=== PATIENT | female | born 1985 | race Caucasian/White ===

== ENCOUNTER 2020-06-19 08:00 | Outpatient (CLI) | payer OTHER ==
[2020-06-19 12:17] LABS: BASOPHILS % (AUTO) 0.5 %; EOSINOPHILS # (AUTO) 0.1 10^3/uL (0.0-0.7); EOSINOPHILS % (AUTO) 1.4 %; HGB - HEMOGLOBIN 13.9 g/dL (12.0-16.0); LYMPHOCYTES % (AUTO) 34.8 %; MEAN CORPUSCULAR HEMOGLOBIN 26.6 pg (27.0-31.0); MEAN CORPUSCULAR HGB CONC 30.9 g/dL (32.0-36.0); MEAN PLATELET VOLUME 11.2 fL (7.9-10.8); MONOCYTES # (AUTO) 0.5 10^3/uL (0.0-1.0); MONOCYTES % (AUTO) 8.7 %; NEUTROPHILS # (AUTO) 3.1 10^3/uL (1.5-6.6); NEUTROPHILS % (AUTO) 54.3 %; PLT - PLATELET COUNT 245 10^3/uL (130-450); RED BLOOD COUNT 5.23 10^6/uL (4.20-5.40); RED CELL DISTRIBUTION WIDTH 13.2 % (12.0-15.0); WHITE BLOOD COUNT 5.8 x10^3/uL (4.8-10.8)
[2020-06-19 12:23] LABS: ALBUMIN 4.1 g/dL (3.2-5.5); ALBUMIN/GLOBULIN RATIO 1.2 (1.0-2.2); ALKALINE PHOSPHATASE 42 IU/L (42-121); ALT ALANINE AMINOTRANSFERASE 15 IU/L (10-60); AST ASPARTATE AMINOTRANSFERASE 17 IU/L (10-42); BILIRUBIN,TOTAL 0.6 mg/dL (0.2-1.0); BUN - BLOOD UREA NITROGEN 19 mg/dL (6-20); CALCIUM 9.4 mg/dL (8.5-10.3); CARBON DIOXIDE - CO2 27 mmol/L (21-32); CHLORIDE 104 mmol/L (101-111); CHOL/HDL RATIO 3.6 (<4.4); CHOLESTEROL 190 mg/dL; CREATININE 0.6 mg/dL (0.4-1.0); GLUCOSE 88 mg/dL (70-100); HDL CHOLESTEROL 53 mg/dL; LDL CHOLESTEROL,CALCULATED 119 mg/dL; LDL/HDL RATIO 2.2 (<4.4); SODIUM 139 mmol/L (135-145); TOTAL PROTEIN 7.5 g/dL (6.7-8.2); VLDL CHOLESTEROL 18 mg/dL
== END 2020-06-19 23:59 | disposition home or self-care (01) ==
LOC: LAB.WCP 08:00
PROVIDERS: ATTEND Nurse Practitioner Family
DX: Z00.00 Encounter for general adult medical examination without abnormal findings (principal)
CPT/HCPCS: 36415; 80053; 80061; 83721; 84443; 85025

== ENCOUNTER 2020-09-17 03:23 | Outpatient (CLI) | payer OTHER | END 2020-09-17 03:24 | disposition EMS.NT | LOC: EMS 03:23 | DX: K59.00 Constipation, unspecified (principal); R10.30 Lower abdominal pain, unspecified ==

== ENCOUNTER 2020-09-17 03:42 | Emergency (ER) | payer OTHER ==
--- NOTE | 2020-09-17 03:45 | ED Physician Documentation ---
PD HPI ABD PAIN - Stated complaint Stated Complaint: ADB PX - History obtained from History obtained from: Patient - History of Present Illness Timing - onset: How many hours ago (several hours of marked cramping abd pains mid/lower abd.) Timing - details: Gradual onset (He states she had left foot and ankle reconstructive surgery 4 days ago. She had not had a bowel movement for a day or 2 prior to that. She had had just small firm stools in the last day. She is having increased cramping and bloating after taking mag citrate. Had had pain meds post op.) Quality: Cramping, Aching, Fullness/distended Location: All over / everywhere, Periumbilical Improved by: No: Position Worsened by: Moving. No: Breathing Associated symptoms: Nausea, Constipation. No: Fever, Vomiting, Diarrhea, Melena Similar symptoms before: Has not had sx before (history of constipation problems, not had cramps like this in the past. No prior abd surgery.) Recently seen: Surgery (4 days ago for left foot and ankle.) Review of Systems Constitutional: denies: Fever, Chills Nose: denies: Rhinorrhea / runny nose, Congestion Throat: denies: Sore throat Cardiac: denies: Chest pain / pressure Respiratory: denies: Dyspnea, Cough GI: reports: Abdominal Pain (cramping), Nausea, Constipation. denies: Vomiting, Diarrhea, Bloody / black stool : denies: Dysuria, Unable to Void Skin: denies: Rash Neurologic: denies: Generalized weakness, Near syncope PD PAST MEDICAL HISTORY - Past Medical History Cardiovascular: None Respiratory: None GI: None, Chronic constipation - Present Medications Home Medications: Ambulatory Orders Medication Instructions Recorded Confirmed Citalopram Hydrobromide 40 mg PO 09/17/20 [Citalopram HBr] Tofacitinib Citrate [Xeljanz Xr] 11 mg PO 09/17/20 09/17/20 Topiramate [Topamax] 25 mg PO 09/17/20 Zolmitriptan [Zomig] 09/17/20 - Allergies Allergies/Adverse Reactions: Allergies Allergy/AdvReac Type Severity Reaction Status Date / Time No Known Drug Allergies Allergy Verified 09/17/20 05:29 PD ED PE NORMAL - Vitals Vital signs reviewed: Yes - General General: Alert and oriented X 3, Well developed/nourished, Other (appears in considerable pain and rubbing her mid to lower abd repetitively. ) - Cardiac Cardiac: RRR, No murmur - Respiratory Respiratory: Clear bilaterally - Abdomen Abdomen: Soft, Non distended, Other (increased bowel sounds mid abd. Tender mid abd without guarding nor percussion tender. ) - Female Female : Deferred - Rectal Rectal: Deferred - Derm Derm: Normal color, Warm and dry - Extremities Extremities: Other (dressing and splint on left ankle/foot. No calf tenderness nor swelling above the splint. ) - Neuro Neuro: Alert and oriented X 3, No motor deficit, No sensory deficit, Normal speech Results - Vitals Vitals: Vital Signs - 24 hr 09/17/20 09/17/20 09/17/20 03:52 04:17 06:00 Temperature 37.3 C 36.5 C Heart Rate 108 H 94 85 Respiratory 22 27 H 21 Rate Blood Pressure 139/88 H 147/88 H 136/89 H O2 Saturation 99 100 98 Oxygen O2 Source Room air - Labs Labs: Laboratory Tests 09/17/20 09/17/20 09/17/20 06:07 06:07 06:07 WBC 7.3 RBC 4.52 Hgb 12.0 Hct 38.9 MCV 86.1 MCH 26.5 L MCHC 30.8 L RDW 12.9 Plt Count 260 MPV 10.6 Neut # (Auto) 5.9 Lymph # (Auto) 1.1 L [place] # (Auto) 0.3 Eos # (Auto) 0.0 Baso # (Auto) 0.0 Absolute Nucleated RBC 0.00 Nucleated RBC % 0.0 Sodium 137 Potassium 3.7 Chloride 105 Carbon Dioxide 22 Anion Gap 10.0 BUN 13 Creatinine 0.6 Estimated GFR (MDRD) 114 Glucose 111 H Calcium 8.3 L Serum HCG, Qual NEGATIVE PD MEDICAL DECISION MAKING - ED course Complexity details: reviewed results (CT scan is showing air-fluid levels which appears to be above an area of stool in the descending and sigmoid colon. There is some thickening of the bowel wall consistent with some potential inflammation. Awaiting radiology report.), re-evaluated patient (Persistence of abdominal cramping and pain, I opted for CT scan and labs to look for other possible causes.), considered differential (He is having a feeling of bloating. Increased abdominal sounds. She does not have a surgically acute abdomen by exam but is having considerable pain. Consider constipation versus obstipation or other process.), d/w patient Departure - Departure Clinical Impression: Status post surgical manipulation of ankle joint, Abdominal cramping, bilateral lower quadrant Constipation Qualifiers: Constipation type: drug induced constipation Qualified Code(s): K59.03 - Drug induced constipation Condition: Stable Record reviewed to determine appropriate education?: Yes
[2020-09-17] MEDS ORDERED: KETOROLAC 30 MG/ML VIAL IVP STA (04:00)
[2020-09-17] MEDS ORDERED: KETAMINE 500 MG/10 ML VIAL IVP STA (04:01)
[2020-09-17] MEDS ORDERED: SODIUM CHLORIDE 0.9% 1,000 ML IV STA (04:02)
[2020-09-17] MEDS ORDERED: MINERAL OIL ENEMA 133 ML BOTTLE RC STA (04:02)
[2020-09-17] MEDS ORDERED: polyethylene glycoL 3350 17 GM PACKET PO STA (04:02)
[2020-09-17] MEDS ORDERED: DICYCLOMINE 10 MG CAPSULE PO STA (05:07)
[2020-09-17] MEDS ORDERED: fentaNYL 100 MCG/2 ML VIAL IVP STA ×2 (05:10→06:07)
[2020-09-17 06:13] LABS: BASOPHILS % (AUTO) 0.1 %; LYMPHOCYTES # (AUTO) 1.1 10^3/uL (1.5-3.5); LYMPHOCYTES % (AUTO) 15.3 %; MEAN CORPUSCULAR HEMOGLOBIN 26.5 pg (27.0-31.0); MEAN CORPUSCULAR HGB CONC 30.8 g/dL (32.0-36.0); MEAN CORPUSCULAR VOLUME 86.1 fL (81.0-99.0); MEAN PLATELET VOLUME 10.6 fL (7.9-10.8); MONOCYTES # (AUTO) 0.3 10^3/uL (0.0-1.0); MONOCYTES % (AUTO) 3.6 %; NEUTROPHILS # (AUTO) 5.9 10^3/uL (1.5-6.6); NEUTROPHILS % (AUTO) 80.9 %; PLT - PLATELET COUNT 260 10^3/uL (130-450); RED BLOOD COUNT 4.52 10^6/uL (4.20-5.40); RED CELL DISTRIBUTION WIDTH 12.9 % (12.0-15.0); WHITE BLOOD COUNT 7.3 x10^3/uL (4.8-10.8)
[2020-09-17] MEDS ORDERED: IOVERSOL 320 100 ML VIAL IVP ONE ×2 (06:15→06:53)
[2020-09-17 06:21] LABS: CALCIUM 8.3 mg/dL (8.5-10.3); CREATININE 0.6 mg/dL (0.4-1.0)
[2020-09-17 06:43] LABS: HCG,QUALITATIVE BLOOD NEGATIVE
[2020-09-17] MEDS ORDERED: SOAP SUDS ENEMA 1 EACH RC ONE (07:03)
[2020-09-17] MEDS ORDERED: HYDROmorphone 1 MG/ML CARPUJECT IVP STA (08:05)
--- NOTE | 2020-09-17 08:44 | CT Report ---
PROCEDURE: Abdomen/Pelvis W INDICATIONS: Mid and lower abdominal cramping pain. History of recent foot and ankle surgery. CONTRAST: IV CONTRAST: Optiray 320 ml: 100 PO CONTRAST: *NO PO CONTRAST TECHNIQUE: After the administration of intravenous contrast, 5 mm thick sections acquired from the diaphragms to the symphysis. 5 mm thick coronal and sagittal reformats were acquired. For radiation dose reducti on, the following was used: automated exposure control, adjustment of mA and/or kV according to zonai ent size. COMPARISON: None. FINDINGS: Image quality: Excellent. ABDOMEN: Lung bases: There is mild dependent atelectasis in the lung bases. Heart size is normal. There are bi lateral breast implants partially visualized. Solid organs: Evaluation of the liver demonstrates no focal hepatic lesions. Gallbladder appears wit hin normal limits without calcified gallstones. Biliary system is non dilated. The spleen is normal in size. Pancreas enhances normally without peripancreatic fat stranding or fluid collections. No ad renal nodules. Kidneys demonstrate no hydronephrosis. Peritoneum and bowel: There is moderate stool distention within the distal descending and sigmoid co eden compatible with constipation or obstipation. More proximally, there is moderate fluid distention throughout the colon with air-fluid levels within the descending, transverse, and ascending colon. Th ere is also mild fluid distention within the distal small bowel with scattered air-fluid levels. The findings are suggestive of an ileus. No definite focal transition point to suggest a bowel obstructio n. No free fluid or air. Nodes and vessels: No retroperitoneal or mesenteric adenopathy by size criteria. Aorta and inferior vena cava are normal in size. Miscellaneous: No ventral hernias. PELVIS: Genitourinary: Bladder wall thickness is normal. Miscellaneous: No inguinal hernias or adenopathy. Bones: No suspicious bony lesions. No vertebral body compression fractures. IMPRESSION: 1. Moderate stool distention of the sigmoid colon with fluid distention demonstrated more proximally throughout the colon as well as in the distal small bowel. Findings likely represent an ileus without definite evidence of focal bowel obstruction. Reviewed by: Dennis Machuca MD on 09/17/2020 8:42 AM PST Approved by: Dennis Machuca MD on 09/17/2020 8:42 AM PST Station ID: [id number]
[2020-09-17 09:28] VITALS: BP 132/80
--- NOTE | 2020-09-17 09:33 | ED Physician Documentation ---
ED Addendum - Addendum Addendum: 09/17/20 09:32 35-year-old female s/p manipulation of her ankle surgically has developed narcotic induced constipation we required 2 enemas in the emergency department to relieve her she feels much improved after several bowel movements and wants to go home. She is instructed to take MiraLAX on a regular basis for 1 to 2 weeks to retrain her colon.
== END 2020-09-17 09:38 | disposition home or self-care (01) ==
LOC: ED 03:42
DX: K59.00 Constipation, unspecified (principal); R10.30 Lower abdominal pain, unspecified; Z98.890 Other specified postprocedural states
CPT/HCPCS: 36415; 74177; 80048; 84703; 85025; 96374; 96375; 96376; 99284; 99285; A9270; J1170; Q9967

== ENCOUNTER 2020-09-17 16:11 | Emergency (ER) | payer OTHER ==
--- NOTE | 2020-09-17 16:31 | ED Physician Documentation ---
History of Present Illness - Stated complaint Stated Complaint: CAN'T MOVE/FEVER - Chief complaint Chief Complaint: Fever - History obtained from History obtained from: Patient - History of Present Illness Timing: Today Pain level max: 7 Pain level now: 6 - Additonal information Additional information: Female who presents to the emergency department stating that she had left foot surgery 4 days ago. Seen here this morning for constipation. [place] better after multiple enemas. Today she went home, fell asleep and then woke up with a fever, body aches and sore throat. Took Tylenol without relief. Nothing makes it better or worse. No cough. Negative Covid screen last week. Review of Systems Constitutional: reports: Fever (Tmax 37.9). denies: Chills Nose: denies: Rhinorrhea / runny nose, Congestion Throat: reports: Sore throat Cardiac: denies: Chest pain / pressure Respiratory: denies: Cough GI: denies: Vomiting, Diarrhea Skin: denies: Rash Musculoskeletal: denies: Neck pain, Back pain Neurologic: denies: Headache PD PAST MEDICAL HISTORY - Past Medical History Cardiovascular: None Respiratory: None GI: None, Chronic constipation - Past Surgical History Past Surgical History: Yes Ortho: Other - Present Medications Home Medications: Ambulatory Orders Medication Instructions Recorded Confirmed Citalopram Hydrobromide 40 mg PO DAILY 09/17/20 09/17/20 [Citalopram HBr] Enoxaparin Sodium [Lovenox] 40 mg SQ DAILY 09/17/20 09/17/20 Tofacitinib Citrate [Xeljanz Xr] 11 mg PO DAILY 09/17/20 09/17/20 Topiramate [Topamax] 25 mg PO DAILY 09/17/20 09/17/20 Zolmitriptan [Zomig] 5 mg ORAL DAILY PRN 09/17/20 09/17/20 - Allergies Allergies/Adverse Reactions: Allergies Allergy/AdvReac Type Severity Reaction Status Date / Time No Known Drug Allergies Allergy Verified 09/17/20 16:14 - Social History Does the pt smoke?: No Smoking Status: Never smoker Does the pt drink ETOH?: Yes Does the pt have substance abuse?: No - Immunizations Immunizations are current?: Yes - POLST Patient has POLST: No PD ED PE NORMAL - Vitals Vital signs reviewed: Yes - General General: Alert and oriented X 3, No acute distress - HEENT HEENT: Moist mucous membranes - Neck Neck: Supple, no meningeal sign - Cardiac Cardiac: RRR - Respiratory Respiratory: No respiratory distress, Clear bilaterally - Derm Derm: Warm and dry - Extremities Extremities: No edema, No calf tenderness / cord, Other (L lower leg in splint) - Neuro Neuro: Alert and oriented X 3 Results - Vitals Vitals: Vital Signs - 24 hr 09/17/20 09/17/20 09/17/20 16:14 18:51 20:00 Temperature 37.9 C 37.9 C Heart Rate 132 H 110 H 107 H Respiratory 20 15 21 Rate Blood Pressure 111/67 129/73 134/71 H O2 Saturation 99 100 98 09/17/20 20:58 Temperature 37.9 C Heart Rate 101 H Respiratory 20 Rate Blood Pressure 134/73 H O2 Saturation 99 Oxygen O2 Source Room air - Labs Labs: Laboratory Tests 09/17/20 09/17/20 09/17/20 16:38 16:38 16:48 WBC 7.8 RBC 4.28 Hgb 11.4 L Hct 36.2 L MCV 84.6 MCH 26.6 L MCHC 31.5 L RDW 13.3 Plt Count 255 MPV 10.3 Neut # (Auto) 6.2 Lymph # (Auto) 1.1 L [place] # (Auto) 0.4 Eos # (Auto) 0.1 Baso # (Auto) 0.0 Absolute Nucleated RBC 0.00 Nucleated RBC % 0.0 Sodium 136 Potassium 3.8 Chloride 100 L Carbon Dioxide 23 Anion Gap 13.0 BUN 11 Creatinine 0.6 Estimated GFR (MDRD) 114 Glucose 125 H Calcium 8.6 Total Bilirubin 0.5 AST 31 ALT 48 Alkaline Phosphatase 50 Total Protein 6.4 L Albumin 3.2 Globulin 3.2 Albumin/Globulin Ratio 1.0 Urine Color Urine Clarity Urine pH Ur Specific [place] Urine Protein Urine Glucose (UA) Urine Ketones Urine Occult Blood Urine Nitrite Urine Bilirubin Urine Urobilinogen Ur Leukocyte Esterase Ur Microscopic Review Urine Culture Comments Urine HCG, Qual Nasal Adenovirus (PCR) Nasal B. parapertussis DNA (PCR) Nasal Coronavir 229E PCR Nasal Coronavir HKU1 PCR Nasal Coronavir NL63 PCR Nasal Coronavir OC43 PCR Nasal Enterovir/Rhinovir PCR Nasal Influenza B PCR Nasal Influenza A PCR Nasal Parainfluen 1 PCR Nasal Parainfluen 2 PCR Nasal Parainfluen 3 PCR Nasal Parainfluen 4 PCR Nasal RSV (PCR) Nasal B.pertussis DNA PCR Nasal C.pneumoniae (PCR) Jesse Human Metapneumo PCR Nasal M.pneumoniae (PCR) Nasal SARS-CoV-2 (PCR) Group A Strep Rapid Negative 09/17/20 09/17/20 16:48 18:40 WBC RBC Hgb Hct MCV MCH MCHC RDW Plt Count MPV Neut # (Auto) Lymph # (Auto) [place] # (Auto) Eos # (Auto) Baso # (Auto) Absolute Nucleated RBC Nucleated RBC % Sodium Potassium Chloride Carbon Dioxide Anion Gap BUN Creatinine Estimated GFR (MDRD) Glucose Calcium Total Bilirubin AST ALT Alkaline Phosphatase Total Protein Albumin Globulin Albumin/Globulin Ratio Urine Color YELLOW Urine Clarity CLEAR Urine pH 7.5 Ur Specific [place] 1.015 Urine Protein NEGATIVE Urine Glucose (UA) NEGATIVE Urine Ketones 15 H Urine Occult Blood NEGATIVE Urine Nitrite NEGATIVE Urine Bilirubin NEGATIVE Urine Urobilinogen 0.2 (NORMAL) Ur Leukocyte Esterase NEGATIVE Ur Microscopic Review NOT INDICATED Urine Culture Comments NOT INDICATED Urine HCG, Qual NEGATIVE Nasal Adenovirus (PCR) NOT DETECTED Nasal B. parapertussis DNA (PCR) NOT DETECTED Nasal Coronavir 229E PCR NOT DETECTED Nasal Coronavir HKU1 PCR NOT DETECTED Nasal Coronavir NL63 PCR NOT DETECTED Nasal Coronavir OC43 PCR NOT DETECTED Nasal Enterovir/Rhinovir PCR NOT DETECTED Nasal Influenza B PCR NOT DETECTED Nasal Influenza A PCR NOT DETECTED Nasal Parainfluen 1 PCR NOT DETECTED Nasal Parainfluen 2 PCR NOT DETECTED Nasal Parainfluen 3 PCR NOT DETECTED Nasal Parainfluen 4 PCR NOT DETECTED Nasal RSV (PCR) NOT DETECTED Nasal B.pertussis DNA PCR NOT DETECTED Nasal C.pneumoniae (PCR) NOT DETECTED Jesse Human Metapneumo PCR NOT DETECTED Nasal M.pneumoniae (PCR) NOT DETECTED Nasal SARS-CoV-2 (PCR) NOT DETECTED Group A Strep Rapid - Rads (name of study) cxr Radiology: Prelim report reviewed, EMP read contemporaneously, See rad report (no acute disease) PD MEDICAL DECISION MAKING - ED course Complexity details: reviewed results, re-evaluated patient, considered differential, d/w patient ED course: 35-year-old female presents to the emergency department with weakness and borderline fever at home. No significant laboratory abnormalities. Feels better after Toradol and Decadron. Given IV fluids as well. Negative chest x- ray. Negative urinalysis. Negative respiratory PCR. Possible rheumatoid arthritis flare? We will have her follow-up with her doctor for further care. She is very well-appearing, nontoxic. No hypoxia. No respiratory distress. No indication for admission. Patient counseled regarding signs and symptoms for which I believe and urgent re-evaluation would be necessary. Patient with good understanding of and agreement to plan and is comfortable going home at this time This document was made in part using voice recognition software. While efforts are made to proofread this document, sound alike and grammatical errors may occur. Departure - Departure Disposition: 01 Home, Self Care Clinical Impression: Weakness Fever Qualifiers: Fever type: unspecified Qualified Code(s): R50.9 - Fever, unspecified Condition: Good Instructions: ED Fever Unconf Cause Follow-Up: HIRA GARCIA, MSN, [employer] [Primary Care Provider] - Within 3 Days Comments: The cause of your symptoms is unclear today. Your laboratory testing, urinalysis, chest x-ray, respiratory panel, including Covid, are all normal. Drink plenty of water at home. Return if you worsen. Hopefully the steroids will help with your swelling. Follow-up with your doctor for further care. Discharge Date/Time: 09/17/20 21:00
[2020-09-17] MEDS ORDERED: KETOROLAC 30 MG/ML VIAL IVP STA ×2 (16:36→19:38)
[2020-09-17] MEDS ORDERED: SODIUM CHLORIDE 0.9% 1,000 ML IV STA ×2 (16:36)
[2020-09-17 16:44] LABS: BASOPHILS % (AUTO) 0.3 %; EOSINOPHILS # (AUTO) 0.1 10^3/uL (0.0-0.7); EOSINOPHILS % (AUTO) 1.3 %; HGB - HEMOGLOBIN 11.4 g/dL (12.0-16.0); LYMPHOCYTES # (AUTO) 1.1 10^3/uL (1.5-3.5); LYMPHOCYTES % (AUTO) 14.1 %; MEAN CORPUSCULAR HEMOGLOBIN 26.6 pg (27.0-31.0); MEAN CORPUSCULAR HGB CONC 31.5 g/dL (32.0-36.0); MEAN CORPUSCULAR VOLUME 84.6 fL (81.0-99.0); MEAN PLATELET VOLUME 10.3 fL (7.9-10.8); MONOCYTES # (AUTO) 0.4 10^3/uL (0.0-1.0); MONOCYTES % (AUTO) 5.1 %; NEUTROPHILS # (AUTO) 6.2 10^3/uL (1.5-6.6); NEUTROPHILS % (AUTO) 79.1 %; PLT - PLATELET COUNT 255 10^3/uL (130-450); RED BLOOD COUNT 4.28 10^6/uL (4.20-5.40); RED CELL DISTRIBUTION WIDTH 13.3 % (12.0-15.0); WHITE BLOOD COUNT 7.8 x10^3/uL (4.8-10.8)
[2020-09-17 17:06] LABS: RAPID STREP SCREEN Negative (Negative)
[2020-09-17 17:11] LABS: ALBUMIN 3.2 g/dL (3.2-5.5); BILIRUBIN,TOTAL 0.5 mg/dL (0.2-1.0); CALCIUM 8.6 mg/dL (8.5-10.3); CREATININE 0.6 mg/dL (0.4-1.0); TOTAL PROTEIN 6.4 g/dL (6.7-8.2)
--- NOTE | 2020-09-17 17:12 | XRAY Report ---
PROCEDURE: Chest 1 View X-Ray INDICATIONS: fever TECHNIQUE: One view of the chest was acquired. COMPARISON: None FINDINGS: Surgical changes and devices: None. Lungs and pleura: No pleural effusions or pneumothorax. Lungs are clear. Mediastinum: Mediastinal contours appear normal. Heart size is normal. Bones and chest wall: No suspicious bony lesions. Overlying soft tissues appear unremarkable. IMPRESSION: No acute cardiopulmonary pathology. Reviewed by: Nithin Dhillon MD on 09/17/2020 5:11 PM PST Approved by: Nithin Dhillon MD on 09/17/2020 5:11 PM PST Station ID: [id number]
[2020-09-17 17:54] LABS: C. PNEUMONIAE- RESP PCR PANEL NOT DETECTED
[2020-09-17 18:51] LABS: BILIRUBIN,URINE NEGATIVE (NEGATIVE); GLUCOSE, URINE (UA) NEGATIVE (NEGATIVE); KETONES,URINE (UA) 15 mg/dL (NEGATIVE); LEUKOCYTE ESTERASE, URINE NEGATIVE (NEGATIVE); NITRITE,URINE NEGATIVE (NEGATIVE); OCCULT BLOOD,URINE NEGATIVE (NEGATIVE); PH,URINE 7.5 PH (5.0-7.5); PROTEIN,URINE NEGATIVE (NEGATIVE); UROBILINOGEN,URINE 0.2 (NORMAL) E.U./dL (NORMAL)
[2020-09-17 18:56] LABS: CLARITY,URINE CLEAR (CLEAR); HCG UR QUAL NEGATIVE
[2020-09-17] MEDS ORDERED: LORazepam 2 MG/ML VIAL IVP STA (19:08)
[2020-09-17] MEDS ORDERED: DEXAMETHASONE 10 MG/ML VIAL PO STA (19:38)
[2020-09-17] MEDS ORDERED: CHERRY SYRUP 10 ML UDC PO ONE (19:38)
[2020-09-17 20:59] VITALS: BP 134/73
== END 2020-09-17 21:00 | disposition home or self-care (01) ==
LOC: ED 16:11
DX: R50.9 Fever, unspecified (principal); R53.1 Weakness; Z20.822 Contact with and (suspected) exposure to COVID-19
CPT/HCPCS: 0202U; 36415; 71045; 80053; 81003; 81025; 85025; 87070; 87430; 96374; 96375; 99284; A9270; J2060; 81001; 87086

== ENCOUNTER 2021-03-26 08:00 | Outpatient (CLI) | payer OTHER ==
[2021-03-26 17:56] LABS: BASOPHILS % (AUTO) 0.4 %; EOSINOPHILS # (AUTO) 0.1 10^3/uL (0.0-0.7); EOSINOPHILS % (AUTO) 1.2 %; HCT - HEMATOCRIT 44.8 % (37.0-47.0); HGB - HEMOGLOBIN 13.4 g/dL (12.0-16.0); LYMPHOCYTES # (AUTO) 1.6 10^3/uL (1.5-3.5); LYMPHOCYTES % (AUTO) 32.1 %; MEAN CORPUSCULAR HEMOGLOBIN 25.9 pg (27.0-31.0); MEAN CORPUSCULAR HGB CONC 29.9 g/dL (32.0-36.0); MEAN CORPUSCULAR VOLUME 86.7 fL (81.0-99.0); MEAN PLATELET VOLUME 11.1 fL (7.9-10.8); MONOCYTES # (AUTO) 0.4 10^3/uL (0.0-1.0); MONOCYTES % (AUTO) 7.6 %; NEUTROPHILS # (AUTO) 2.9 10^3/uL (1.5-6.6); NEUTROPHILS % (AUTO) 58.3 %; PLT - PLATELET COUNT 251 10^3/uL (130-450); RED BLOOD COUNT 5.17 10^6/uL (4.20-5.40); RED CELL DISTRIBUTION WIDTH 14.4 % (12.0-15.0)
[2021-03-26 18:05] LABS: ALBUMIN 3.7 g/dL (3.2-5.5); ALBUMIN/GLOBULIN RATIO 1.4 (1.0-2.2); BILIRUBIN,TOTAL 0.8 mg/dL (0.2-1.0); CALCIUM 8.9 mg/dL (8.5-10.3); CREATININE 0.6 mg/dL (0.4-1.0); POTASSIUM 4.3 mmol/L (3.5-5.0); TOTAL PROTEIN 6.3 g/dL (6.7-8.2)
== END 2021-03-26 23:59 | disposition home or self-care (01) ==
LOC: LAB.WCP 08:00
PROVIDERS: ATTEND Internal Medicine Rheumatology
DX: M06.09 Rheumatoid arthritis without rheumatoid factor, multiple sites (principal); Z79.899 Other long term (current) drug therapy
CPT/HCPCS: 36415; 80053; 85025

== ENCOUNTER 2021-07-21 10:18 | Outpatient (CLI) | payer OTHER | END 2021-07-21 23:59 | disposition home or self-care (01) | LOC: LAB.N 10:18 | PROVIDERS: ATTEND Physician Assistant | DX: R05.9 Cough, unspecified (principal); Z20.822 Contact with and (suspected) exposure to COVID-19 ==

== ENCOUNTER 2021-08-06 17:19 | Outpatient (CLI) | payer OTHER ==
--- NOTE | 2021-08-06 18:06 | XRAY Report ---
PROCEDURE: Chest 2 View X-Ray INDICATIONS: COUGH TECHNIQUE: 2 view(s) of the chest. COMPARISON: 09/17/2020 FINDINGS: Surgical changes and devices: None. Lungs and pleura: No pleural effusions or pneumothorax. Lungs are clear. Mediastinum: Mediastinal contours are normal. Heart size is normal. Bones and chest wall: No suspicious bony abnormalities. Soft tissues appear unremarkable. IMPRESSION: No acute cardiopulmonary process demonstrated radiographically. Reviewed by: Jasvir Sol MD on 08/06/2021 6:04 PM [facility] Approved by: Jasvir Sol MD on 08/06/2021 6:04 PM [facility] Station ID: [id number]
== END 2021-08-06 23:59 | disposition home or self-care (01) ==
LOC: DI.N 17:19
PROVIDERS: ATTEND Family Medicine
DX: R05.9 Cough, unspecified (principal); Z20.822 Contact with and (suspected) exposure to COVID-19
CPT/HCPCS: 87275; 87276

== ENCOUNTER 2021-11-18 09:22 | Outpatient (CLI) | payer OTHER ==
[2021-11-18] MEDS ORDERED: GADOBUTROL 7.5 MMOL/7.5 ML VIAL ONE (09:52)
--- NOTE | 2021-11-18 13:55 | MRI Report ---
PROCEDURE: Angio Brain W/O (MRA) INDICATIONS: MIGRAINES, FAM HIST OF BRAIN ANEURYSM TECHNIQUE: Noncontrast axial 3-D [id number] MR angiogram, with 3-dimensional maximum intensity projection (M IP) reformats of the internal carotid arteries and posterior circulation then performed. COMPARISON: None. FINDINGS: Image quality: Excellent. Anterior circulation: Intracranial internal carotid arteries demonstrate normal size and intralumina l flow signal. The flow within the paired anterior cerebral arteries is normal and symmetric. The f low within the middle cerebral arteries is normal and symmetric. The anterior communicating artery i s seen. No stenoses, occlusions, or aneurysms. Posterior circulation: Visualized portions of the vertebral arteries demonstrate normal caliber, and join to form a normal appearing basilar artery. The flow within the posterior cerebral arteries is normal and symmetric. No stenoses, occlusions, or aneurysms. IMPRESSION: Unremarkable MR angiogram of the brain. No evidence of significant stenosis, aneurysm or vascular mal formation Reviewed by: Edilberto Horowitz MD on 11/18/2021 12:54 PM [facility] Approved by: Edilberto Horowitz MD on 11/18/2021 12:54 PM [facility] Station ID: [id number]
--- NOTE | 2021-11-18 14:03 | MRI Report ---
PROCEDURE: MRI brain with and without contrast INDICATIONS: MIGRAINES, FAM HIST OF BRAIN ANEURYSM CONTRAST: IV CONTRAST: Gadavist ml: 7.5 TECHNIQUE: Noncontrast axial T1 spin echo, axial T2 fast spin echo, sagittal and axial FLAIR, coronal T2 fast sp in echo, axial gradient echo, axial diffusion and ADC through the brain. After the administration of contrast, axial and coronal T1 spin echo with fat saturation through the brain. COMPARISON: None. FINDINGS: Image quality: Excellent. CSF spaces: Basal cisterns are patent. No extra-axial fluid collections. Ventricles are normal in size and shape. Brain: No midline shift. No intracranial bleeds or masses. No abnormal intracranial enhancement. There is cerebral volume loss for age. There is periventricular white matter chronic small vessel is chemic change. The brainstem appears normal. Diffusion-weighted images demonstrate no acute ischemi c insults. No chronic ischemic insults. Normal intravascular flow voids are present. Skull and face: Calvarial marrow is normal in signal. Orbits appear normal. Sinuses: Sinuses and mastoids appear clear. IMPRESSION: 1. Unremarkable MRI of the brain with and without contrast Reviewed by: Edilberto Horowitz MD on 11/18/2021 1:01 PM [facility] Approved by: Edilberto Horowitz MD on 11/18/2021 1:01 PM [facility] Station ID: [id number]
[2021-11-18] MEDS ORDERED: GADOBUTROL 7.5 MMOL/7.5 ML VIAL IVP ONE (16:24)
== END 2021-11-18 09:23 | disposition home or self-care (01) ==
LOC: DI 09:22
PROVIDERS: ATTEND Family Medicine
DX: G43.909 Migraine, unspecified, not intractable, without status migrainosus (principal); Z82.0 Family history of epilepsy and other diseases of the nervous system
CPT/HCPCS: 70544; 70553; A9585

== ENCOUNTER 2021-12-01 16:29 | Outpatient (CLI) | payer OTHER ==
[2021-12-01 21:29] LABS: ALBUMIN 3.8 g/dL (3.2-5.5); ALBUMIN/GLOBULIN RATIO 1.4 (1.0-2.2); BILIRUBIN,TOTAL 0.5 mg/dL (0.2-1.0); CALCIUM 8.7 mg/dL (8.5-10.3); CREATININE 0.8 mg/dL (0.4-1.0); TOTAL PROTEIN 6.6 g/dL (6.7-8.2)
== END 2021-12-01 16:30 | disposition home or self-care (01) ==
LOC: LAB.N 16:29
PROVIDERS: ATTEND Internal Medicine Rheumatology
DX: M06.09 Rheumatoid arthritis without rheumatoid factor, multiple sites (principal); Z79.899 Other long term (current) drug therapy
CPT/HCPCS: 36415; 80053

== ENCOUNTER 2022-07-20 13:26 | Outpatient (CLI) | payer OTHER ==
[2022-07-20 18:24] LABS: ALBUMIN 3.9 g/dL (3.2-5.5); ALBUMIN/GLOBULIN RATIO 1.3 (1.0-2.2); BILIRUBIN,TOTAL 0.4 mg/dL (0.2-1.0); CREATININE 0.6 mg/dL (0.4-1.0); POTASSIUM 3.8 mmol/L (3.5-5.0); TOTAL PROTEIN 6.8 g/dL (6.7-8.2)
== END 2022-07-20 13:27 | disposition home or self-care (01) ==
LOC: LAB.N 13:26
PROVIDERS: ATTEND Internal Medicine Rheumatology
DX: M06.09 Rheumatoid arthritis without rheumatoid factor, multiple sites (principal); Z79.899 Other long term (current) drug therapy
CPT/HCPCS: 36415; 80053

== ENCOUNTER 2022-08-12 14:49 | Outpatient (CLI) | payer OTHER ==
[2022-08-12 18:14] LABS: BASOPHILS % (AUTO) 0.7 %; EOSINOPHILS # (AUTO) 0.1 10^3/uL (0.0-0.7); EOSINOPHILS % (AUTO) 1.9 %; HGB - HEMOGLOBIN 12.2 g/dL (12.0-16.0); LYMPHOCYTES # (AUTO) 2.8 10^3/uL (1.5-3.5); LYMPHOCYTES % (AUTO) 49.1 %; MEAN CORPUSCULAR HEMOGLOBIN 25.2 pg (27.0-31.0); MEAN CORPUSCULAR HGB CONC 29.8 g/dL (32.0-36.0); MEAN CORPUSCULAR VOLUME 84.5 fL (81.0-99.0); MEAN PLATELET VOLUME 11.3 fL (7.9-10.8); MONOCYTES # (AUTO) 0.4 10^3/uL (0.0-1.0); MONOCYTES % (AUTO) 6.6 %; NEUTROPHILS # (AUTO) 2.4 10^3/uL (1.5-6.6); NEUTROPHILS % (AUTO) 41.4 %; PLT - PLATELET COUNT 289 10^3/uL (130-450); RED BLOOD COUNT 4.85 10^6/uL (4.20-5.40); RED CELL DISTRIBUTION WIDTH 12.9 % (12.0-15.0); WHITE BLOOD COUNT 5.8 x10^3/uL (4.8-10.8)
== END 2022-08-12 14:50 | disposition home or self-care (01) ==
LOC: LAB.N 14:49
PROVIDERS: ATTEND Internal Medicine Rheumatology
DX: M06.09 Rheumatoid arthritis without rheumatoid factor, multiple sites (principal); Z79.899 Other long term (current) drug therapy
CPT/HCPCS: 36415; 85025